=== PATIENT | female | born 1955 | race Caucasian/White ===

== ENCOUNTER → 2024-03-28 | Outpatient (CLI) | payer MEDICARE, BC, SELFPAY ==
--- NOTE | 2024-03-28 14:18 | CT_ITS ---
CT LEFT LOWER EXTREMITY WITH 3-D IMAGING CLINICAL INDICATION: LT KNEE PAIN * CAMELIA* TECHNIQUE: Axial CT images of the left lower extremity (including left hip, left knee, and left ankle) was performed without IV contrast material. Coronal and sagittal reformats were provided. The protocol utilizes one or more of the following dose reduction techniques: automated exposure control, adjustment of mA and/or kV according to patient size, and/or use of iterative reconstruction technique. RADIATION DOSAGE (If Supplied By Facility): CTDIvol = ( 18.91 ) mGy, DLP = ( 1170.90 ) mGycm COMPARISON: No relevant prior comparison study available. FINDINGS: Bones: Normal left hip joint. There is mild tricompartment degenerative arthrosis of the left knee, with mild marginal osteophyte formation. Normal left ankle. Osseous structures are intact without evidence of fracture or dislocation. No lytic or blastic osseous masses. Soft Tissues: There is a tiny left knee joint effusion. The deep soft tissue structures are unremarkable. The superficial soft tissues are unremarkable without evidence of edema, hematoma, or foreign body. CT/Extremity Lower without Contra IMPRESSION: Mild tricompartment degenerative arthrosis of the left knee. Tiny left knee joint effusion. Electronically Signed: Sundar Fregoso MD at 15:12 EST Reading Location ID and State: [facility] / [place] , Service support ,
== END | disposition home or self-care (01) ==
LOC: CT 14:14
PROVIDERS: PCP Family Medicine; Referring Provider Student in an Organized Health Care Education/Training Program; Visit Provider Student in an Organized Health Care Education/Training Program
DX: M25.562 Pain in left knee (principal)
CPT/HCPCS: 73700

== ENCOUNTER 2024-04-21 13:27 | Observation (INO) | payer MEDICARE, BC, SELFPAY ==
--- NOTE | 2024-03-23 14:17 | PAT.ANESEVAL ---
Pre-Assessment Diagnosis/Proposed Procedure Planned Operative Procedure(s): (LEFT) Total Knee Replacement Robotic Arm Chel Anesthesia History Anesthesia History - operations research scientist: Anesthesia History - operations research scientist Hx Hospitalization Yes: HEART VALVE REPLACEMENT 03/23/24 11:20 - 05/18/23 Any Problems With Anesthesia No 03/23/24 11:20 Cholinesterase deficiency No 03/23/24 11:20 You/Your Family Experience No 03/23/24 11:20 fever (hyperthermia) with Relationship Recent Exposure to Contagious No 01/14/17 08:16 Disease Does patient have nerve No 03/23/24 11:20 stimulator Patient instructed to have device shut off --Does patient have Pacemaker or ICD? When Was Last Pacemaker Check QUESTION #4 FULL TEXT: You/Your Family Experience fever (hyperthermia) with Anesthesia Last Oral Intake Last Oral intake: Last Oral Intake NPO since Meds taken in AM with sips of water? Meds patient instructed to take am of surgery PONV PONV - operations research scientist: PONV - operations research scientist Female Yes 03/23/24 11:20 HX of Motion Sickness No 03/23/24 11:20 HX of N/V After Surgery Yes 03/23/24 11:20 Non-Smoker Yes 03/23/24 11:20 Duration of Surgery greater Yes 03/23/24 11:20 than 60 minutes Number of Risk Factors 4 03/23/24 11:20 PONV Score Severe Risk 03/23/24 11:20 Respiratory Assessment Respiratory Assessment - operations research scientist: Respiratory Tract Infection Hx - operations research scientist Hx Respiratory Tract Infection Yes: FLU 03/0803/23/24 11:20 STOP Sleep Apnea STOP Sleep Apnea - operations research scientist: STOP Sleep Apnea - operations research scientist Hx Hypertension No 03/23/24 11:20 Hx Sleep Apnea No 03/23/24 11:20 CPAP No 01/14/17 08:56 BIPAP Do you snore loudly (louder No 03/23/24 11:20 than talking or can be heard Do you often feel tired/ No 03/23/24 11:20 fatigued/ sleepy during daytime? Has anyone observed you stop No 03/23/24 11:20 breathing during sleep? STOP Results Negative 03/23/24 11:20 QUESTION #5 FULL TEXT : Do you snore loudly (louder than talking or can be heard through closed doors)? 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 Specify any problems Hx of Preganancy in last 3 N/A 03/23/24 11:20 Months Nurse Filling Out Transfusion NBUCHER 03/23/24 11:20 & Questions: Date: 03/23/24 03/23/24 11:20 Time: 11:22 03/23/24 11:20 Patient unable to answer at this time (ie. confused, unrespo /Reproduction History /Reproductive History - operations research scientist: /Reproductive Hx- operations research scientist Hx Now No 03/23/24 11:20 Gestational Age (in weeks): EDC: Hx Hx Para Hx Section SAB No 03/23/24 11:20 [facility] Medical History (Updated 03/23/24 @ 11:35 by Rosalia Thomas) Wears hearing aid Loss of hearing Wears glasses Depression Glaucoma Arthritis High cholesterol GERD (gastroesophageal reflux disease) History of edema Former smoker History of stress test History of echocardiogram Hypertension Cardiology follow-up encounter History of atrial fibrillation Home Medications ?Medication ?Instructions ?Recorded ?Last Taken ?Type bimatoprost 0.03 % drops with 1 drp QHS 01/08/17 Unknown History applicator, eyelash base (Latisse) fluoxetine 20 mg capsule (Prozac) 20 mg PO DAILY 01/08/17 Unknown History multivitamin (Multiple Vitamins 1 ea PO DAILY 01/08/17 Unknown History tablet) potassium citrate 10 mEq (1,080 40 meq PO DAILY 01/08/17 Unknown History mg) tablet,extended release rosuvastatin 10 mg tablet 40 mg PO QHS 01/08/17 Unknown History apixaban 5 mg tablet (Eliquis) 5 mg PO BID 03/23/24 Unknown History bumetanide 1 mg tablet 1 mg PO DAILY 03/23/24 Unknown History clopidogrel 75 mg tablet 75 mg PO DAILY 03/23/24 Unknown History lactobacillus combination no.4 3 3,000 mmu cells PO DAILY 03/23/24 Unknown History billion cell capsule (Probiotic) losartan 25 mg tablet 25 mg PO DAILY 03/23/24 Unknown History metoprolol succinate 25 mg 25 mg PO BID 03/23/24 Unknown History tablet,extended release 24 hr Allergy/AdvReac Type Severity Reaction Status Date / Time Sulfa (Sulfonamide Allergy Rash Verified 03/23/24 11:14 Antibiotics) omeprazole (From Prilosec) AdvReac Intermediate Swelling Verified 03/23/24 11:14 Surgical History (Updated 03/23/24 @ 11:35 by Rosalia Thomas) History of heart valve replacement (05/18/23) History of cataract extraction with lens replacement (~2023) History of heart surgery (05/18/23) History of coronary artery stent placement History of cardiac catheterization Social History Smoking Status: Former smoker Audit: Pertinent Findings Pertinent Findings EKG Perinent findings: 06/19/2023 - rhythm 60 bpm Long QT interval consider hypocalcemia or quinine like drug effect borderline EKG unconfirmed Echo (EF%) pertinent findings: 06/30/2023 EF 55 to 60% no wall motion abnormalities right PA pressure 38 mmHg Consult pertinent findings: Cardiology Martha 01/22/2024 chronic diastolic heart failure euvolemic continue current management to mild coronary artery disease 2023 abdominal aortic stent bioprosthetic aortic valve 2023 had episode of VT tach status post surgery aortic valve 2023 paroxysmal atrial fib ejection fraction 06/30/2019 2455 to 60% Current Visit Impressions Current Visit Impressions: Upon arrival review EKG as it is not present Recommendation Anesthesia Recommendation Anesthesia recommendation: OPTIMIZED for anesthesia
--- NOTE | 2024-03-24 13:24 | EKG12_ITS ---
Test Reason : PRE OP Blood Pressure : */* mmHG Vent. Rate : 65 BPM Atrial Rate : 65 BPM P-R Int : 162 ms QRS Dur : 84 ms QT Int : 442 ms P-R-T Axes : 12 89 75 degrees QTcB Int : 459 ms Normal sinus rhythm Normal ECG Confirmed by Sergio Nye ([id number]), news copy editor KAREN LOJA ([id number]) on 03/25/2024 1:00:42 PM Referred By: Zak Rios Confirmed By: Sergio Nye
[2024-03-24 14:23] LABS: Absolute Lymphocyte Count 1.15 X10^3/uL (0.83-4.51); Absolute Neutrophil Count 3.6 X10^3/uL (2.0-7.7); Basophil# 0.03 X10^3/uL; Basophil% 0.5 % (0-1); Eosinophil# 0.29 X10^3/uL; Eosinophils% 4.9 % (0-5); Hematocrit 38.3 % (37-47); Hemoglobin 12.3 g/dL (12.0-15.0); Lymphocyte # 1.15 X10^3/ul (0.83-4.51); Lymphocyte % 19.6 % (19-41); Mean Corp Hgb Conc 32.1 g/dL (32-36); Mean Corpuscular Hgb 28.7 pg (27.0-32.0); Mean Corpuscular Volume 89.5 fL (81-99); Mean Platelet Vol. 10.1 fl (6.2-12.0); Monocyte# 0.78 X10^3/uL; Monocyte% 13.3 % (0-10); NRBC Flagged by Analyzer 0 % (0-5); Neutrophil % 61.4 % (47-70); Platelet Count 265 K/mm3 (150-450); RBC Distribution Width CV 13.2 % (11.6-14.6); RBC Distribution Width SD 43.3 fl (35.1-43.9); Red Blood Count 4.28 M/mm3 (4.2-5.4); White Blood Count 5.9 K/mm3 (4.4-11.0)
[2024-03-24 14:35] LABS: Albumin, Serum 3.4 g/dL (3.2-5.0); Anion Gap 7 (5-15); BUN 17 mg/dL (7-18); BUN/Creat Ratio 22.9 RATIO (10-20); Calcium,Total 8.9 mg/dL (8.5-10.1); Chloride 102 mmol/L (98-107); Creatinine, Serum 0.74 mg/dL (0.55-1.02); EST Glomerular Filtration Rate 82 mL/min (>60); Est Glom Filt Rate - Afr Amer 100 mL/min (>60); Glucose 92 mg/dL (74-106); Potassium 3.4 mmol/L (3.5-5.1); Sodium Level 138 mmol/L (136-145)
[2024-03-24 19:56] LABS: Magnesium 1.9 mg/dL (1.6-2.6)
[2024-04-21] VITALS (14 sets, daily range): BP systolic 123–154; BP diastolic 53–80; PULSE 56–97; RESP 14–22; TEMP 36.2–36.6; O2SAT 95–100; BMI 39.4
[2024-04-21] MEDS: Magnesium 2 GM for ERAS IV (09:22)
[2024-04-21] MEDS: 0.9% Normal Saline (1000mL) 1,000 ML 15 ML IV (09:22)
[2024-04-21] MEDS: Acetaminophen 500 MG Tablet 1000 MG PO ×3 (09:22→21:27)
[2024-04-21] MEDS: Gabapentin 600 MG Tablet PO (09:23)
[2024-04-21 09:50] LABS: Bedside Glucose 97 mg/dL (74-106)
--- NOTE | 2024-04-21 10:03 | PCM.PRE.AN2 ---
ASA Classification* ASA Classification ASA Classification: 3 Assessment & Plan Anesthesia* Anesthesia Assessment Anesthesia Assessment: Discussed sedation and/or anesthesia options, risks, benefits, and alternatives with patient/parents/legal guardian/POA. Questions invited. The patient/parents/legal guardian/POA seems to understand and agrees to proceed with anesthesia plan. Reviewed the physical assessment, medical history, allergy history and patient home medications list prior to surgery/procedure/anesthetic and documented any changes. Performed airway and anesthesia risk assessments. Anesthesia Type Anesthesia Type: General History Source History Obtained from:: Patient and Chart Anesthesia Focused Assessment* Temperature: 98 F Pulse Rate: 61 Blood Pressure: 123/80 Respiratory Rate: 16 Pulse Ox: 98 Oxygen Delivery Method: Room Air Airway Assessment Mouth opens: >3 cm Mallampati Score: I Teeth Condition: Caps/Crowns (Patient has several crowns. They are all tight.) and Missing (Patient has a couple of missing molars on the left side.) Neck Range of motion (ROM): Full ROM Focused Labs Anesthesia Preop lab: CBC WBC 5.9 K/mm3 (4.4-11.0) 03/24/24 13:49 03/24/24 RBC 4.28 M/mm3 (4.2-5.4) 03/24/24 13:49 03/24/24 Hgb 12.3 g/dL (12.0-15.0) 03/24/24 13:49 03/24/24 Hct 38.3 % (37-47) 03/24/24 13:49 03/24/24 Plt Count 265 K/mm3 (150-450) 03/24/24 13:49 03/24/24 CHEMISTRY Potassium 3.4 mmol/L (3.5-5.1) L 03/24/24 13:49 03/24/24 Sodium 138 mmol/L (136-145) 03/24/24 13:49 03/24/24 Magnesium 1.9 mg/dL (1.6-2.6) 03/24/24 13:49 03/24/24 BUN 17 mg/dL (7-18) 03/24/24 13:49 03/24/24 Creatinine 0.74 mg/dL (0.55-1.02) 03/24/24 13:49 03/24/24 Glucose 92 mg/dL (74-106) 03/24/24 13:49 03/24/24 POC Glucose 97 mg/dL (74-106) 04/21/24 09:33 04/21/24 COAG Pre-Assessment Diagnosis/Proposed Procedure Planned Operative Procedure(s): (LEFT) Total Knee Replacement Robotic Arm Assist Anesthesia History Anesthesia History - health manager: Anesthesia History - health manager Hx Hospitalization Yes: HEART VALVE REPLACEMENT 03/23/24 11:20 - 05/18/23 Any Problems With Anesthesia No 03/23/24 11:20 Cholinesterase deficiency No 03/23/24 11:20 You/Your Family Experience No 03/23/24 11:20 fever (hyperthermia) with Relationship Recent Exposure to Contagious No 04/21/24 09:34 Disease Does patient have nerve No 03/23/24 11:20 stimulator Patient instructed to have device shut off --Does patient have Pacemaker No 04/21/24 09:34 or ICD? When Was Last Pacemaker Check QUESTION #4 FULL TEXT: You/Your Family Experience fever (hyperthermia) with Anesthesia Last Oral Intake Last Oral intake: Last Oral Intake NPO since 07:15 04/21/24 09:34 Meds taken in AM with sips of Yes 04/21/24 09:34 water? Meds patient instructed to take am of surgery Any additional information?: Yes NPO since: 07:15 (Patient finished preop Ensure at 7:15 AM.) PONV PONV - health manager: PONV - health manager Female Yes 03/23/24 11:20 HX of Motion Sickness No 03/23/24 11:20 HX of N/V After Surgery Yes 03/23/24 11:20 Non-Smoker Yes 03/23/24 11:20 Duration of Surgery greater Yes 03/23/24 11:20 than 60 minutes Number of Risk Factors 4 03/23/24 11:20 PONV Score Severe Risk 03/23/24 11:20 Height & Weight Height & Weight: Anesthesia: Height & Weight Height 5 ft 3 in 04/21/24 09:34 Weight: 101 kg 04/21/24 09:34 Body Mass Index (BMI) 39.4 04/21/24 09:34 Respiratory Assessment Respiratory Assessment - health manager: Respiratory Tract Infection Hx - health manager Hx Respiratory Tract Infection Yes: FLU 12/24 01/08/25 11:20 STOP Sleep Apnea STOP Sleep Apnea - health manager: STOP Sleep Apnea - health manager Hx Hypertension No 03/23/24 11:20 Hx Sleep Apnea No 03/23/24 11:20 CPAP No 01/14/17 08:56 BIPAP Do you snore loudly (louder No 03/23/24 11:20 than talking or can be heard Do you often feel tired/ No 03/23/24 11:20 fatigued/ sleepy during daytime? Has anyone observed you stop No 03/23/24 11:20 breathing during sleep? STOP Results Negative 03/23/24 11:20 QUESTION #5 FULL TEXT : Do you snore loudly (louder than talking or can be heard through closed doors)? 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 Specify any problems Hx of Preganancy in last 3 N/A 03/23/24 11:20 Months Nurse Filling Out Transfusion [facility]BU[facility] 03/23/24 11:20 & Questions: Date: 03/23/24 03/23/24 11:20 Time: 11:22 03/23/24 11:20 Patient unable to answer at this time (ie. confused, unrespo /Reproduction History /Reproductive History - health manager: /Reproductive Hx- health manager Hx Now No 03/23/24 11:20 Gestational Age (in weeks): EDC: Hx Hx Para Hx Section SAB No 03/23/24 11:20 Active Medications Active Medications: Current Medications Generic Name Dose Route Start Last Admin Trade Name Freq PRN Reason Stop Dose Admin Acetaminophen 1,000 mg 04/21/24 11:00 04/21/24 09:22 Acetaminophen 500 Mg Tablet PO 04/21/24 11:01 1,000 mg X1 ONE Administration Sodium Chloride 77.4 ml/ 0 ml 04/21/24 11:00 Ropivacaine 200 mg/ OPERA.SITE 04/21/24 11:01 Epinephrine HCl 0.6 mg/ X1 ONE Ketorolac Tromethamine 30 mg/ Morphine Sulfate 5 mg Dexamethasone Sodium Phosphate 10 mg 04/21/24 11:00 Dexamethasone 10 Mg/Ml Vial IV 04/21/24 11:01 X1 ONE Gabapentin 600 mg 04/21/24 11:00 04/21/24 09:23 Gabapentin 600 Mg Tablet PO 04/21/24 11:01 600 mg X1 ONE Administration Lactated Ringer's 1,000 mls @ 999 mls/hr 04/21/24 11:00 04/21/24 09:38 IV 04/21/24 12:00 Not Given .Q1H1M EVANS Cefazolin Sodium 2 gm/ N/A 20 mls @ 400 mls/hr 04/21/24 11:00 IV 04/21/24 11:02 PREOP ONE Tranexamic Acid 1,000 mg/ 110 mls @ 660 mls/hr 04/21/24 11:00 Sodium Chloride IV 04/21/24 11:09 X1 ONE Tranexamic Acid 1,000 mg/ 110 mls @ 660 mls/hr 04/21/24 12:00 Sodium Chloride IV 04/21/24 12:09 X1 ONE Lactated Ringer's 1,000 mls @ 999 mls/hr 04/21/24 12:00 IV 04/21/24 13:00 .Q1H1M EVANS Lactated Ringer's 1,000 mls @ 125 mls/hr 04/21/24 13:00 IV 04/21/24 20:59 .Q8H EVANS Magnesium Sulfate 2 gm/ 104 mls @ 208 mls/hr 04/21/24 11:00 04/21/24 09:22 Dextrose IV 04/21/24 11:29 208 mls/hr X1 ONE Administration Sodium Chloride 1,000 mls @ 15 mls/hr 04/21/24 09:00 04/21/24 09:22 IV 04/26/24 22:19 15 mls/hr .Q48H EVANS Administration Protocol Insulin Human Lispro 1 - 6 unit 04/21/24 11:00 Insulin Lispro 100 Unit/Ml Insuln.Pen SC 04/21/24 17:00 Q4H PRN PRN BG>/= 180, SEE PROTOCOL Protocol PFSH Medical History Wears hearing aid Loss of hearing Wears glasses Depression Glaucoma Arthritis High cholesterol GERD (gastroesophageal reflux disease) History of edema Former smoker History of stress test History of echocardiogram Hypertension Cardiology follow-up encounter History of atrial fibrillation Home Medications ?Medication ?Instructions ?Recorded ?Last Taken ?Type bimatoprost 0.03 % drops with 1 drp QHS 01/08/17 04/20/24 History applicator, eyelash base (Latisse) fluoxetine 20 mg capsule (Prozac) 20 mg PO DAILY 01/08/17 04/21/24 History multivitamin (Multiple Vitamins 1 ea PO DAILY 01/08/17 04/20/24 History tablet) Held on 04/21/24. Instructions: MD Ordered potassium citrate 10 mEq (1,080 40 meq PO DAILY 01/08/17 04/20/24 History mg) tablet,extended release Held on 04/21/24. Instructions: MD Ordered rosuvastatin 10 mg tablet 40 mg PO DAILY 01/08/17 04/20/24 History apixaban 5 mg tablet (Eliquis) 5 mg PO BID 03/23/24 04/19/24 History bumetanide 1 mg tablet 1 mg PO DAILY 03/23/24 04/20/24 History clopidogrel 75 mg tablet 75 mg PO DAILY 03/23/24 04/16/24 History lactobacillus combination no.4 3 3,000 mmu cells PO DAILY 03/23/24 04/20/24 History billion cell capsule (Probiotic) losartan 25 mg tablet 25 mg PO DAILY 03/23/24 04/21/24 History metoprolol succinate 25 mg 25 mg PO BID 03/23/24 04/21/24 History tablet,extended release 24 hr aspirin 81 mg tablet,delayed 81 mg PO DAILY 04/21/24 04/21/24 History release (Adult Aspirin Regimen) Allergy/AdvReac Type Severity Reaction Status Date / Time Sulfa (Sulfonamide Allergy Rash Verified 04/21/24 09:19 Antibiotics) omeprazole (From Prilosec) AdvReac Intermediate Swelling Verified 04/21/24 09:19 Surgical History History of heart valve replacement (05/18/23) History of cataract extraction with lens replacement (~2023) History of heart surgery (05/18/23) History of coronary artery stent placement History of cardiac catheterization Social History Smoking Status: Former smoker Review of Systems (Anesthesia) ROS Narrative System reviewed and no additional complaints, except as documented.
--- NOTE | 2024-04-21 11:00 | KNEE_PTH ---
PATIENT: VARINDER PEREZ LOC: MS3 U#:[id number] AGE/SX: 68/F [place] [facility] [place]: Dr. Zak Rios DO : 1955 BED: 1 DIS: 04/22/2024 SPEC #: [id number] RECD: 04/21/24 13:34 STATUS: ZEN REBrea #: [id number] NYA: 04/21/24 11:[address]: Zak Rios DEPT: SURGICAL PATHOLOGY RECD BY: Abel Jasso ENTERED: 04/21/24 13:49 SP TYPE: TOTAL KNEE OTHR DR: Dr. Iva Fleming DO Tissues: Knee, NOS Procedures: Decalcification bone/plaque Surgery Specimen Level IV HEADER OPERATION: Total knee replacement robotic arm assist PRE-OP DIAGNOSIS: Unilateral posttraumatic arthritis of left knee TISSUE SUBMITTED: Left knee bone and tissue MICROSCOPIC DIAGNOSIS Bone and soft tissue, left knee, total knee replacement/resection: Pieces of bone with degenerative osteoarthritic changes. : 04/27/2024 MICROSCOPIC DESCRIPTION Slides are reviewed. GROSS DESCRIPTION Received is one container designated bone and soft tissue left knee. The specimen consists of multiple fragments of may-yellow bone measuring in aggregate 9 x 9 x 3.5 cm. No soft tissue is identified. A number of bony fragments contain articular surfaces consistent with tibial plateau and femoral condyle and displaying prominent osteophyte formation, eburnation and bone erosion. Aviation Neuropsychologist sections are submitted in one cassette after decalcification. / KAYCEE. 04/21/2024 TC:5 CPT: 27270, [id number]
[2024-04-21] MEDS: dexAMETHasone 10 MG/ML Vial IV (11:05)
[2024-04-21] MEDS: TXA 1000mg in NS100 100ml (IVPB at Incision) 660 MG IV (11:13)
[2024-04-21] MEDS: Cefazolin 2 GM in Syringe 10 ML IV (11:15)
[2024-04-21] MEDS: JPS (Morphine 10mg/ml) OPERA.SITE (12:30)
[2024-04-21] MEDS: TXA 1000mg in NS100 100ml (IVPB at Closure) 660 MG IV (12:35)
--- NOTE | 2024-04-21 13:15 | PCM.POST.ANE ---
Anesthesia: Postop Eval I Current Vital Signs Temperature: 97.2 F Pulse Rate: 96 Blood Pressure: 154/69 Respiratory Rate: 22 Pulse Ox: 96 Assessment Airway patent: Yes Spontaneous unlabored respirations: Yes nausea: No Vomiting: No Anesthesia Complication: No Fluid Hydration Crystalloid volume administer (ml): 1,000 Total IV fluid infused: 1,000 Progress Note Anesthesia document: Postop Eval 1 completed: Yes
[2024-04-21] MEDS: Lactated Ringers 1,000 ML 999 ML IV (13:46)
--- NOTE | 2024-04-21 14:33 | OP.PCM_ITS ---
Operative Report (Standard) Operative Information Date of Procedure: 04/21/24 Pre-Operative Diagnosis: Left knee osteoarthritis Post-Operative Diagnosis: Left knee osteoarthritis Surgery/Procedure Performed: Robotic arm assisted left total knee arthroplasty journeyman mechanic: Yes Closing Agent: Azalea Mae Tasks completed by first officer: Opening & closing, Dissecting tissue, Implanting device and Retracting Additional child and youth program assistant?: Yes Additional Auto Service Station Attendant #2: Valeria Chisholm Tasks completed by child and youth program assistant #2: Hemostasis: Electrocautery and Retracting Additional child and youth program assistant?: No Type of Anesthesia: General RN Documented Start/Stop Times: Operation Date: 04/21/24 11:00 Case Time Into Pre-Op 04/21/24 08:57 Out of Pre-Op 04/21/24 10:48 Anesthesia Start 04/21/24 11:01 Into Room 04/21/24 11:01 Procedure Start 04/21/24 11:34 Procedure End 04/21/24 13:02 Anesthesia End 04/21/24 13:12 Out of Room 04/21/24 13:12 Into Recovery 04/21/24 13:15 Out of Recovery 04/21/24 13:59 Into Phase II Recovery 04/21/24 14:00 Procedure Start Time: 11:34 Procedure Stop Time: 13:02 Select all DRAINS/GRAFTS/IMPLANTS that apply: Implanted device Implanted device details: Surgical implants: Javed triathlon X3 asymmetric patella size a 4011 mm thickness, triathlon cruciate retaining femoral #7, primary tibial baseplate #7, triathlon X3 tibial bearing insert CS Indications: This is a 68-year-old male seen in the outpatient setting diagnosed with left knee osteoarthritis with significant valgus deformity. She failed nonoperative management with intra-articular corticosteroid injections, activity modification, bracing, [id number] analgesics. X-rays revealed grade 4 medial compartment changes. I recommended a left total knee arthroplasty. The risk, benefits, alternatives to procedure reviewed with patient at length and he agreed to proceed. Risks included but were not limited to bleeding, infection, loss of life or limb, need for additional surgery, persistent pain, intraoperative or postoperative fracture, instability, loosening of components, wound complications, stiffness, neurovascular injury, DVT or PE. Patient expressed understanding these risks and wished to proceed with surgery. Informed consent was obtained in the outpatient setting. Description of procedure: Patient was identified in the preoperative holding area by name, medical record number, and date of . Informed consent set was confirmed with the patient. The operative knee was marked with a surgical marker. At time of her procedure, patient brought to the operative suite and positioned supine a standard operating table. General anesthesia was induced and endotracheal tube placed. She was then repositioned in the supine position with all bony prominences well-padded. We then placed a well-padded pneumatic tourniquet on the left upper thigh. The left upper extremity was brought across patient's chest throughout the procedure. We then prepped and draped the left lower extremity in a normal, sterile orthopedic fashion. We performed a timeout with all parties in attendance in agreement with the side, site, operation be performed. No concerns were voiced and would like to proceed with surgery. 2 g Ancef was administered prior to the incision by anesthesia staff as well as 1 g IV TXA. First exsanguinated the left lower extremity with a Esmarch bandage. Tourniquet was inflated to 280 mmHg which remained inflated for 1 hour. Esmarch was removed. I planned a standard midline approach to the left knee approximately 15 cm in length. Skin was sharply incised with a 10 blade scalpel developing full-thickness layers down to the retinaculum. Layers were developed identifying the VMO. I then planned a standard medial parapatellar arthrotomy performed in flexion. The anterior horn of the medial meniscus was released. Hoffa's fat pad was then released. I then everted the patella in extension and brought the knee into 90 degrees of flexion. The anterior horn of the lateral meniscus was then released. The ACL was split in its mid substance with a 10 blade. We then brought the knee back into extension. The patella was examined. Grade I-II chondromalacia was noted diffusely. Elected to leave the patella [place]. I then placed pins in the metaphyseal distal femur medial to lateral for the Gerber arrays. In similar fashion, I made a 2 cm incision approximately a handsbreadth distal to the tibial tubercle along the medial aspect of the tibia, drilling 2 bicortical pins for the tibial array. The knee was brought into flexion. The patella was subluxed laterally but not everted. Medial lateral retractors were placed. We then utilized the Payfirma software to confirm our planned surgical procedure and oriented with the patient's osseous anatomy. All checks with the Gerber system were confirmed. Patient had a significant fixed varus deformity after performing stress examination utilizing the Gerber software. We elected to place the femoral component in approximately 2 degrees of varus to allow for appropriate balancing. Sawblade was then brought in. I first started with the tibial cut, ensuring protection of the MCL and patellar tendon. A tibial wafer was then excised. I then proceeded to make the posterior femoral, anterior, anterior chamfer cuts with the same blade. Ligaments were protected with Intermedics retractors. Sawblade was then exchanged to perform the distal femoral and posterior chamfer cuts. The robot was then removed from the surgical field. Remaining loose bone and meniscus was excised carefully. Posterior osteophytes were removed from the distal femur with a curved osteotome and rongeur. Trial components were then placed. Balance was excellent in both extension and 90 degrees flexion. No mid flexion instability was apparent. Patella was trialed. Tracking was excellent. We then marked for tibial baseplate. Distal femoral pegs were drilled. Tibial keel was punched. Trials were removed. Periarticular block was administered. The wound was copiously irrigated with normal saline solution. Simplex cement was then mixed on the back table. Components were then cemented in place with excess cement being removed. Cement was allowed to cure with the components in full extension utilizing a 9 mm trial polyethylene component. While the cement was curing, Betadine solution was irrigated into the wound and the wound edges. After cement had cured fully, trial polyethylene was removed. Tourniquet was deflated. Hemostasis was excellent. An additional 1 g TXA was administered IV. I selected a size 9 mm polyethylene which was placed and impacted per spray machine tender recommendations. Final components appeared very well balanced with excellent range of motion. The wound was copiously irrigated with normal saline solution. Capsule was closed watertight with #1 strata fix barbed suture. Deeper bursal layer was reapproximated with 0 Vicryl suture. Dermis was reapproximated buried interrupted 2-0 Vicryl suture. Skin was finally reapproximated diego. Patient tolerated the procedure well without apparent complication. She was extubated and safely awakened in the operative suite, transferred to her hospital bed and subsequently to PACU in stable condition. Need for skilled child and youth program assistant: Azalea Mae PA-C was critical to the outcome of the case. During the course of the procedure the physician child and youth program assistant played a vital role. Her intimate knowledge of my steps in the procedure aided in safe and expedient completion of the procedure. The PA played a vital role in positioning particularly in obtaining the appropriate positioning. The PA was also vital in the retraction of soft tissues during the exposure and projecting vital structures. The PA was also vital and protecting soft tissues during times of bony cuts. She also played a vital role in closure with my direct supervision. The PA was also important during reduction and dislocation of the joint and trials intraoperatively. Post Operative Plan: Patient will be placed in observation overnight due to her multiple comorbidities. Weightbearing: Range of motion and weightbearing as tolerated left lower extremity. Antibiotics: Ancef 2 g every 8 hours x 3 doses. 1 week prophylactic Keflex due to BMI risk factor DVT Prophylaxis: Restart home Eliquis, aspirin and Plavix postoperative day #1 Newsome: None Dressing: Maintain silver dressing x7 days X-Rays: 2-week x-rays in the office. Follow-up: 2 weeks in my office for staple removal Estimated Blood Loss: 30 cc Specimen collected: Yes Description of specimen(s) removed: Bony resections left knee Description of surgery: Surgical implants: Javed triathlon X3 asymmetric patella size a 4011 mm thickness, triathlon cruciate retaining femoral #7, primary tibial baseplate #7, triathlon X3 tibial bearing insert CS Indications: This is a 68-year-old male seen in the outpatient setting diagnosed with left knee osteoarthritis with significant valgus deformity. She failed nonoperative management with intra-articular corticosteroid injections, activity modification, bracing, qguk-mfj-[id number] analgesics. X-rays revealed grade 4 medial compartment changes. I recommended a left total knee arthroplasty. The risk, benefits, alternatives to procedure reviewed with patient at length and he agreed to proceed. Risks included but were not limited to bleeding, infection, loss of life or limb, need for additional surgery, persistent pain, intraoperative or postoperative fracture, instability, loosening of components, wound complications, stiffness, neurovascular injury, DVT or PE. Patient expressed understanding these risks and wished to proceed with surgery. Info rmed consent was obtained in the outpatient setting. Description of procedure: Patient was identified in the preoperative holding area by name, medical record number, and date of . Informed consent set was confirmed with the patient. The operative knee was marked with a surgical marker. At time of her procedure, patient brought to the operative suite and positioned supine a standard operating table. General anesthesia was induced and endotracheal tube placed. She was then repositioned in the supine position with all bony prominences well-padded. We then placed a well-padded pneumatic tourniquet on the left upper thigh. The left upper extremity was brought across patient's chest throughout the procedure. We then prepped and draped the left lower extremity in a normal, sterile orthopedic fashion. We performed a timeout with all parties in attendance in agreement with the side, site, operation be performed. No concerns were voiced and would like to proceed with surgery. 2 g Ancef was administered prior to the incision by anesthesia staff as well as 1 g IV TXA. First exsanguinated the left lower extremity with a Esmarch bandage. Tourniquet was inflated to 280 mmHg which remained inflated for 1 hour. Esmarch was removed. I planned a standard midline approach to the left knee approximately 15 cm in length. Skin was sharply incised with a 10 blade scalpel developing full-thickness layers down to the retinaculum. Layers were developed identifying the VMO. I then planned a standard medial parapatellar arthrotomy performed in flexion. The anterior horn of the medial meniscus was released. Hoffa's fat pad was then released. I then everted the patella in extension and brought the knee into 90 degrees of flexion. The anterior horn of the lateral meniscus was then released. The ACL was split in its mid substance with a 10 blade. We then brought the knee back into extension. The patella was examined. Grade I-II chondromalacia was noted diffusely. Elected to leave the patella [place]. I then placed pins in the metaphyseal distal femur medial to lateral for the Gerber arrays. In similar fashion, I made a 2 cm incision approximately a handsbreadth distal to the tibial tubercle along the medial aspect of the tibia, drilling 2 bicortical pins for the tibial array. The knee was brought into flexion. The patella was subluxed laterally but not everted. Medial lateral retractors were placed. We then utilized the Payfirma software to confirm our planned surgical procedure and oriented with the patient's osseous anatomy. All checks with the Payfirma system were confirmed. Patient had a significant fixed varus deformity after performing stress examination utilizing the Payfirma software. We elected to place the femoral component in approximately 2 degrees of varus to allow for appropriate balancing. Sawblade was then brought in. I first started with the tibial cut, ensuring protection of the MCL and patellar tendon. A tibial wafer was then e xcised. I then proceeded to make the posterior femoral, anterior, anterior chamfer cuts with the same blade. Ligaments were protected with Intermedics retractors. Sawblade was then exchanged to perform the distal femoral and posterior chamfer cuts. The robot was then removed from the surgical field. Remaining loose bone and meniscus was excised carefully. Posterior osteophytes were removed from the distal femur with a curved osteotome and rongeur. Trial components were then placed. Balance was excellent in both extension and 90 degrees flexion. No mid flexion instability was apparent. Patella was trialed. Tracking was excellent. We then marked for tibial baseplate. Distal femoral pegs were drilled. Tibial keel was punched. Trials were removed. Periarticular block was administered. The wound was copiously irrigated with normal saline solution. Simplex cement was then mixed on the back table. Components were then cemented in place with excess cement being removed. Cement was allowed to cure with the components in full extension utilizing a 9 mm trial polyethylene component. While the cement was curing, Betadine solution was irrigated into the wound and the wound edges. After cement had cured fully, trial polyethylene was removed. Tourniquet was deflated. Hemostasis was excellent. An additional 1 g TXA was administered IV. I selected a size 9 mm polyethylene which was placed and impacted per spray machine tender recommendations. Final components appeared very well balanced with excellent range of motion. The wound was copiously irrigated with normal saline solution. Capsule was closed watertight with #1 strata fix barbed suture. Deeper bursal layer was reapproximated with 0 Vicryl suture. Dermis was reapproximated buried interrupted 2-0 Vicryl suture. Skin was finally reapproximated diego. Patient tolerated the procedure well without apparent complication. She was extubated and safely awakened in the operative suite, transferred to her hosp ital bed and subsequently to PACU in stable condition. Need for skilled child and youth program assistant: Azalea Mae PA-C was critical to the outcome of the case. During the course of the procedure the physician child and youth program assistant played a vital role. Her intimate knowledge of my steps in the procedure aided in safe and expedient completion of the procedure. The PA played a vital role in positioning particularly in obtaining the appropriate positioning. The PA was also vital in the retraction of soft tissues during the exposure and projecting vital structures. The PA was also vital and protecting soft tissues during t imes of bony cuts. She also played a vital role in closure with my direct supervision. The PA was also important during reduction and dislocation of the joint and trials intraoperatively. Post Operative Plan: Patient will be placed in observation overnight due to her multiple comorbidities. Weightbearing: Range of motion and weightbearing as tolerated left lower extremity. Antibiotics: Ancef 2 g every 8 hours x 3 doses. 1 week prophylactic Keflex due to BMI risk factor DVT Prophylaxis: Restart home Eliquis, aspirin and Plavix postoperative day #1 Newsome: None Dressing: Maintain silver dressing x7 days X-Rays: 2-week x-rays in the office. Follow-up: 2 weeks in my office for staple removal Surgical Findings: Severe left knee osteoarthritis. Good patellofemoral tracking following final implantation. Complications Complications: No Admit VTE Documentation VTE Present on Admission: No VTE Mechan Device Prophylaxis: SCD's and Thigh High PRITESH Hose VTE Pharm Prophylaxis ordered?: Yes
[2024-04-21] MEDS: Lactated Ringers 1,000 ML 125 ML IV (14:46)
--- NOTE | 2024-04-21 15:51 | POSTOPAN2_ITS ---
Anesthesia Postop Eval I Sum Postop Eval Completion status Anesthesia document: Postop Eval 1 completed: Yes Anesthesia Postop Eval I Summary Anesthesia Postop Eval I Summary: Anesthesia Postop Eval I: Assessment Summary Airway patent Yes 04/21/24 13:15 OFFICE MACHINES SALES REPRESENTATIVE.[email or web address] Spontaneous unlabored Yes 04/21/24 13:15 OFFICE MACHINES SALES REPRESENTATIVE.CSIR respirations Mental status nausea No 04/21/24 13:15 OFFICE MACHINES SALES REPRESENTATIVE.CSIR Vomiting No 04/21/24 13:15 OFFICE MACHINES SALES REPRESENTATIVE.CSIR Anesthesia Postop Eval I: Fluid Summary Crystalloid volume administer 1,000 04/21/24 13:15 OFFICE MACHINES SALES REPRESENTATIVE.CSIR (ml) Colloids volume administered ( ml) Blood Product volume administered (ml) Total IV fluid infused 1,000 04/21/24 13:15 OFFICE MACHINES SALES REPRESENTATIVE.CSIR Anesthesia Postop Eval I: Summary Notes Anesthesia Complication No 04/21/24 13:15 OFFICE MACHINES SALES REPRESENTATIVE.CSIR Anesthesia Complication Comment: Post-operative progress note Anesthesia: Postop Eval II Evaluation Mental status: Awake and Calm Pain Level: 1 nausea: No Vomiting: No Complications Anesthesia Complication: No
--- NOTE | 2024-04-21 15:51 | PCM.POSTANE2 ---
Anesthesia Postop Eval I Sum Postop Eval Completion status Anesthesia document: Postop Eval 1 completed: Yes Anesthesia Postop Eval I Summary Anesthesia Postop Eval I Summary: Anesthesia Postop Eval I: Assessment Summary Airway patent Yes 04/21/24 13:15 [email or web address] Spontaneous unlabored Yes 04/21/24 13:15 [email or web address] respirations Mental status nausea No 04/21/24 13:15 [email or web address] Vomiting No 04/21/24 13:15 WIG [email or web address] Anesthesia Postop Eval I: Fluid Summary Crystalloid volume administer 1,000 04/21/24 13:15 WIG [email or web address] (ml) Colloids volume administered ( ml) Blood Product volume administered (ml) Total IV fluid infused 1,000 04/21/24 13:15 WIG [email or web address] Anesthesia Postop Eval I: Summary Notes Anesthesia Complication No 04/21/24 13:15 WIG [email or web address].CSIR Anesthesia Complication Comment: Post-operative progress note Anesthesia: Postop Eval II Evaluation Mental status: Awake and Calm Pain Level: 1 nausea: No Vomiting: No Complications Anesthesia Complication: No
[2024-04-21] MEDS: Cefazolin 1 GM/50 ML BAG IV (18:31)
--- NOTE | 2024-04-21 20:22 | PCM.PN.HOSP ---
Reason for Visit Reason for Visit: Diagnoses Encounter for other preprocedural examination (04/21/24) Subjective Subjective 68-year-old female with history of atrial fibrillation, coronary artery disease with history of stent placement 11/2023, AV valve replacement May 2023, hypertension, anxiety presented [facility] 04/21/2024 for a left total knee arthroplasty with Dr. Rios, hospitalist consulted postoperatively for medical management. Patient evaluated at bedside, reports she is overall feeling well with no chest pain or shortness of breath. Discussed her triple therapy with anticoagulants and antiplatelet she reports that she was on Plavix and Eliquis and was only placed on aspirin temporarily while her Plavix was held for surgery and that starting tomorrow she is post to go back on just Plavix and Eliquis with no aspirin. She follows with cardiology. Objective Data Objective Data Vital Signs: Vital Signs Temp Pulse Resp BP Pulse Ox O2 Del Method O2 Flow Rate 97.4 F L 59 L 16 139/53 H 99 Room Air 2 04/21/24 18:36 04/21/24 18:36 04/21/24 18:36 04/21/24 18:36 04/21/24 18:36 04/21/24 18:36 04/21/24 16:55 Oxygen Flow Rate (L/min) 2 Oxygen Delivery Method Room Air Weight: 101 kg Body Mass Index (BMI) 39.4 Intake & Output: Intake and Output for Last 24 Hours 04/19/24 04/20/24 04/21/24 23:59 23:59 23:59 Intake Total 3380.83 / 3380.83 Balance 3380.83 / 3380.83 Lab / Micro Data 03/24/24 13:49 03/24/24 13:49 Labs: Laboratory Results - last 24 hr 04/21/24 09:33: POC Glucose 97 Micro: Microbiology 03/24/24 13:49 Swab (Method) Nasal Screen MRSA/MSSA - Final Physical Exam Narrative General: Alert, oriented, no apparent distress HEENT: Atraumatic, normocephalic Eyes: Anicteric, normal conjunctiva, extraocular movements grossly intact Neck: Supple Respiratory: Clear to auscultation bilaterally, normal respiratory effort Cardiovascular: Regular rate and rhythm GI: Soft, nontender, nondistended Extremities: No edema Musculoskeletal: Moving all extremities Neuro: No overt focal neurological deficits Skin: No rashes appreciated Psych: Cooperative Assessment & Plan Assessment/Plan (1) History of coronary artery stent placement: PLAN: Plan # History of coronary artery disease -With stent placement 11/2023 -Patient endorses she was only placed on aspirin while her Plavix was held for surgery and that her tomato grader wants her resumed on Eliquis and Plavix tomorrow with no further aspirin given she is resuming her regular therapy, aspirin discontinued -Continue follow-up with cardiology on discharge -Continue atorvastatin and metoprolol #Hx afib -Continue metoprolol and Eliquis tor resume tomorrow # History of AV valve replacement -Patient had AV valve replacement May 2023 #Hypertension -Patient to resume losartan and metoprolol #Depression/anxiety -Continue home fluoxetine # Left knee osteoarthritis -Status post left total knee arthroplasty 04/21/[address] Rios -PT/OT -Management per primary #DVT ppx: resuming eliquis Ayla Vickers MD Time spent in the patient's overall evaluation, decision-making process, review of diagnostic data, adjustment of management, discussion with other providers, nursing and ancillary staff involved in patient's care documentation, 22 Minutes Charges/Coding Visit Charges Office Visits / Consults: [id number] OV L3 Est 20min
[2024-04-21] MEDS: Senna/Docusate Sodium 1 Tablet 2 TABLET PO (21:27)
[2024-04-21] MEDS: Metoprolol(XL)Succ 25 MG Tablet PO (21:27)
[2024-04-21] MEDS: Latanoprost 0.005% 1 Bottle 1 DRP OPHTHALMIC (21:30)
[2024-04-22] MEDS: oxyCODONE 5 MG Tablet PO (01:21)
[2024-04-22] MEDS: Cefazolin 1 GM/50 ML BAG IV (02:27)
[2024-04-22 02:40] VITALS: BP 126/54; PULSE 57; RESP 16; TEMP 36.6; O2SAT 95
[2024-04-22] MEDS: Acetaminophen 500 MG Tablet 1000 MG PO ×2 (06:12→13:17)
[2024-04-22 06:25] VITALS: BP 120/55; PULSE 55; RESP 16; TEMP 36.6; O2SAT 97
[2024-04-22 06:40] LABS: Hematocrit 31.4 % (37-47); Hemoglobin 10.1 g/dL (12.0-15.0); Mean Corp Hgb Conc 32.2 g/dL (32-36); Mean Corpuscular Hgb 28.7 pg (27.0-32.0); Mean Corpuscular Volume 89.2 fL (81-99); Mean Platelet Vol. 10.3 fl (6.2-12.0); Platelet Count 191 K/mm3 (150-450); RBC Distribution Width CV 13.5 % (11.6-14.6); Red Blood Count 3.52 M/mm3 (4.2-5.4); White Blood Count 14.2 K/mm3 (4.4-11.0)
[2024-04-22 07:10] LABS: Anion Gap 6 (5-15); BUN 16 mg/dL (7-18); BUN/Creat Ratio 25.8 RATIO (10-20); Calcium,Total 8.2 mg/dL (8.5-10.1); Chloride 107 mmol/L (98-107); Creatinine, Serum 0.62 mg/dL (0.55-1.02); EST Glomerular Filtration Rate 101 mL/min (>60); Est Glom Filt Rate - Afr Amer 122 mL/min (>60); Estimated Creatinine Clearance 74.21 ml/min; Glucose 139 mg/dL (74-106); Potassium 4.6 mmol/L (3.5-5.1); Sodium Level 138 mmol/L (136-145)
[2024-04-22] MEDS: Senna/Docusate Sodium 1 Tablet 2 TABLET PO (07:57)
[2024-04-22] MEDS: APIXABAN 5 MG TABLET PO (07:57)
[2024-04-22] MEDS: Bumetanide 2 MG Tablet 1 MG PO (07:58)
[2024-04-22] MEDS: Clopidogrel Bisulfate 75 MG Tablet PO (07:58)
[2024-04-22] MEDS: Atorvastatin Calcium 80 MG Tablet PO (07:58)
[2024-04-22] MEDS: FLUoxetine 20 MG Capsule PO (07:58)
[2024-04-22] MEDS: Losartan Potassium 25 MG Tablet PO (07:58)
[2024-04-22 07:59] VITALS: BP 120/55; PULSE 55
[2024-04-22] MEDS: Metoprolol(XL)Succ 25 MG Tablet PO (07:59)
--- NOTE | 2024-04-22 11:03 | CASEMGMT ---
GONZÁLEZ PIERRE Assessment Face to Face with patient for initial transition planning/care coordination assessment. GONZÁLEZ PIERRE introduced self and role at [facility], pt voices understanding. Pt is A&Ox4 and is resting comfortably in the chair and is calm. Care providers, pharmacy, and demographics verified. Admitting Dx: Lt TKR LACE Strata: 1 PCP: Iva Fleming Specialists: Blanca (Ortho), Alicia (Cardio), Jesus (Vascular) Preferred Pharmacy: [facility] Insurance: FreshPay A/B, [employer] Prescription Benefit: Yes LNOK: Rissa Mcelroy (H) Living Arrangements: Pt lives with her in a 2 story home with a FFSU and 5 steps to enter with a handrail ADLs/IADLs: Ind Transportation: Self, . Denies concerns DME: FWW, Cane, Shower chair, grab bars HHC/SNF: Hx with [facility] in 2023 after cardiac surgery. Denies SNF Hx or needs. Pt has been to OP therapy through [facility] in the past Pt?s goal: Home Plan: Home with OP Tx. PT is recommending OP Tx, see note. Pt states that she is already established with OP Tx through [facility] and does not need a new Rx for this. Pt states that her first appt is scheduled for Thursday. Pt states that she feels safe with this plan and denies further concerns at this time. Report given to MEHNAZ CLAUDIO CM. Abdulaziz Mcelroy RN, CM
[2024-04-22 11:34] VITALS: BP 120/47; PULSE 55; RESP 16; TEMP 36.3; O2SAT 96
--- NOTE | 2024-04-22 11:48 | CPS ---
SMI and Pep held at this time. Pt on phone.
--- NOTE | 2024-04-22 11:54 | DS.PCM_ITS ---
Providers Date of Admission: 04/21/24 Date of Discharge: 04/22/24 Primary Care Physician: Dr. Iva Fleming, DO Consultations 04/21/24 13:26 Consult: Hospitalist Routine Consulting Provider: Ayla Vickers Reason for Consult: post op total knee medical management EMERGENT Consult: No MD Notified: Yes Date Notified: 04/21/24 Time Notified: 14:51 Method of Notification: Text Reason For Visit: Total Knee Replacement Robotic Arm Chel LEFT Diagnosis Discharge Diagnosis (1) History of coronary artery stent placement: Status: Acute Code(s): Z95.5 - Presence of coronary angioplasty implant and graft (2) S/P total knee arthroplasty: Status: Acute Code(s): Z96.659 - Presence of unspecified artificial knee joint Plan: Patient is postop day 1 status post left total knee arthroplasty with Dr. Rios 04/21/2024. 1. Will continue PT today. Weightbearing as tolerated 2. plan for discharge this afternoon following PT 3. Patient will follow up for post op appointment as previously scheduled in 2 weeks 4. Patient has outpatient PT appointment as previously scheduled 5. WBC 14.2 acute reactive leukocytosis: secondary to pre operative decadron. no acute systemic signs of infection. will monitor, and likely self resolve. 6. H/H .04/15.4: post operavtive anemia secondary to acute blood loss intraoperatively. Patient is asymptomatic at this time. No intraoperative complications. will continue to monitor. no acute interventions. 7. DVT prophylaxis : Resume Eliquis and Plavix today. Discontinue aspirin. This is what she was on before surgery. 8. Pain control: patient instructed to take tylenol 500mg 2 tablets TID. and oxycodone 1-2 tablets every 4-6 hours only as needed for pain control. 9. Patient also given a prescription of Keflex 500 mg 4 times a day for 1 week for prophylaxis. 10. ok to remove post op dressing. post op day 7 Medications at Discharge Home Medications bimatoprost 0.03 % drops with applicator, eyelash base (Latisse) 1 drp QHS 01/08/17 fluoxetine 20 mg capsule (Prozac) 20 mg PO DAILY 01/08/17 multivitamin (Multiple Vitamins tablet) 1 ea PO DAILY 01/08/17 potassium citrate 10 mEq (1,080 mg) tablet,extended release 40 meq PO DAILY 01/08/17 rosuvastatin 10 mg tablet 40 mg PO DAILY 01/08/17 apixaban 5 mg tablet (Eliquis) 5 mg PO BID 03/23/24 bumetanide 1 mg tablet 1 mg PO DAILY 03/23/24 clopidogrel 75 mg tablet 75 mg PO DAILY 03/23/24 lactobacillus combination no.4 3 billion cell capsule (Probiotic) 3,000 mmu cells PO DAILY 03/23/24 losartan 25 mg tablet 25 mg PO DAILY 03/23/24 metoprolol succinate 25 mg tablet,extended release 24 hr 25 mg PO BID 03/23/24 acetaminophen 500 mg tablet 1,000 mg (2 x 500 mg) PO Q8 #180 tabs 04/22/24 cephalexin 500 mg capsule 500 mg PO Q6H 7 days #28 caps 04/22/24 oxycodone 5 mg tablet 5 - 10 mg (1 - 2 x 5 mg) PO .q4-6hrs prn PRN Pain Score 4- 10 7 days #42 tabs 04/22/24 sennosides 8.6 mg-docusate sodium 50 mg tablet (Stimulant Laxative Plus) 2 tab PO BID #14 tabs 04/22/24 Hospital Course Operations total knee replacement Procedures None Summary of Care Provided Hospital Course: Patient is s/p left sided total knee arthroplasty with Dr. Rios 04/21/2024. Patient resting comfortably in bed. Rates pain 3/ 10 at rest. With movement 6/10. States taking Tylenol and oxycodone as needed and ice help to relieve pain. Patient has been up with therapy. Walking with the assit of a walker. Afebrile, no chest pain, shortness of breath, negative calf pain/ erythema, and no other signs of DVT. Physical Exam Narrative Patient resting comfortably in bed No signs of acute distress Satting well on room air Limb is warm to touch, Sensation intact throughout entire lower extremity, including saphenous, sural, superficial and deep peroneal, and tibial distribution. DP/PT pulses bounding. Dorsiflexion plantarflexion strength 5/5 Dressing small amount of drainage at the distal pin sites. the tegaderm dressing is still intact. there is small amount of drainage at distal portion of mepilex. Calf nontender to palpation, no erythema, no edema. Negative Homans Weight / BMI Weight Weight: 101 kg Body Mass Index (BMI) 39.4 ABG / Lab / Microbiology Data 04/22/24 05:47 04/22/24 05:47 Laboratory: Laboratory Results - last 24 hr 04/22/24 05:47: WBC 14.2 H, RBC 3.52 L, Hgb 10.1 L, Hct 31.4 L, MCV 89.2, MCH 28.7, MCHC 32.2, RDW Std Deviation 44.0 H, RDW Coeff of Earl 13.5, Plt Count 191, MPV 10.3, Sodium 138, Potassium 4.6, Chloride 107, Carbon Dioxide 25.0, Anion Gap 6, BUN 16, Creatinine 0.62, Estim Creat Clear Calc 74.21, Est GFR (MDRD) Af Amer 122, Est GFR (MDRD) Non-Af 101, BUN/Creatinine Ratio 25.8 H, Glucose 139 H, Calcium 8.2 L Microbiology: Microbiology 03/24/24 13:49 Swab (Method) Nasal Screen MRSA/MSSA - Final D/C Instructions Discharge Diet: No restrictions Discharge Activity: Return to Normal Activity May shower in (days): 1 Ice area for (Minutes): 20 Weight Bearing Status: Weight bearing as tolerated Keep extremity elevated above heart level: Operative Extremity and Left Leg Call your doctor if your incision/area has: Continuous Slow Oozing, Sudden Increased Bleeding, Increased Pain/ Swelling, Increased Redness, Foul Smelling Discharge and Swelling at the incision site Call your doctor if you observe: Fever of 101 or Higher, Numbness or Tingling, Inability to urinate, Inability to have a bowel movement, Shortness of breath, Dizziness, Chest pain, Increased palpitations (irregular heartbeat) and Calf discomfort Remove Dressing in: 1 week Cleanse incision/area with: Soap & Water and Keep Dressing Clean & Dry DC O2, CPAP, BIPAP Needs Home O2 Discharge instructions: No DC home with Oxygen: No When: In 2 weeks as previously scheduled Meaningful Use Info Meaningful Use Meaningful Use Diagnoses (Choose all that apply): None applicable Ischemic Stroke Statin Dosing Therapy Reference: STATIN DOSE THERAPY REFERENCE: * Patients > 75 years receive moderate or high dose statin therapy. * Patients 75 years or YOUNGER should receive HIGH intensity statin dose unless contraindicated. You will be required to document reason for non-treatment if statin daily dose does not meet guidelines. HIGH DOSE STATIN THERAPY DAILY Atorvastatin > than or = to 40 mg Rosuvastatin > than or = to 20 mg Amlodipine + Atorvastatin > than or = to 2.5/40 mg Ezetimibe + Simvastatin 10/80 mg Simvastatin 80mg Discharge Plan Admission Admit Date/Time: 04/21/24 13:27 Attending Provider: Zak Rios Primary Care Provider: Iva Fleming Consulting Providers: Ayla Vickers; Alex Emery Discharge Orders/Prescriptions Prescriptions: New acetaminophen 500 mg Tablet 1,000 mg PO Q8 Qty: 180 0RF oxycodone 5 mg Tablet 5 - 10 mg PO .q4-6hrs prn PRN (Reason: Pain Score 4-10) 7 Days Qty: 42 0RF sennosides-docusate sodium [Stimulant Laxative Plus] 8.6-50 mg Tablet 2 tab PO BID Qty: 14 0RF cephalexin 500 mg capsule 500 mg PO Q6H 7 Days Qty: 28 0RF Continued multivitamin [Multiple Vitamins] 1 EACH tablet 1 ea PO DAILY potassium citrate 10 MEQ tablet extended release 40 meq PO DAILY fluoxetine [Prozac] 20 MG capsule 20 mg PO DAILY rosuvastatin 10 MG tablet 40 mg PO DAILY bimatoprost [Latisse] 1 DROP bottle 1 drp Left Eye QHS clopidogrel 75 mg tablet 75 mg PO DAILY losartan 25 mg tablet 25 mg PO DAILY bumetanide 1 mg tablet 1 mg PO DAILY metoprolol succinate 25 mg tablet extended release 24 hr 25 mg PO BID Eliquis 5 mg tablet 5 mg PO BID Probiotic 3 billion cell capsule 3,000 mmu cells PO DAILY Rx Instructions: administer with a meal Discontinued aspirin [Adult Aspirin Regimen] 81 mg tablet,delayed release (DR/EC) 81 mg PO DAILY Other Ambulatory Orders: 12 Lead EKG (Routine) Location: None Selected Ordered By: Dr. Zak Rios Referrals / Follow Up: Ronald Sepulveda DO [Med Staff - Fitness Director] - Disposition Disposition (needs filled in before D/C Order can be placed): Home, Self Care
== END 2024-04-22 13:34 | disposition home or self-care (01) ==
LOC: SDC 14:25 → MS3 14:25
PROVIDERS: Anesthesiology; Admitting Provider Student in an Organized Health Care Education/Training Program; PCP Family Medicine; Referring Provider Student in an Organized Health Care Education/Training Program; Visit Provider Student in an Organized Health Care Education/Training Program
PROC: 0SRD0JZ Replacement of Left Knee Joint with Synthetic Substitute, Open Approach (ICD-10-PCS; CPT 27447; principal; 2024-04-21 10:30)
DX: M17.12 Unilateral primary osteoarthritis, left knee (principal); I11.0 Hypertensive heart disease with heart failure; I50.9 Heart failure, unspecified; I48.0 Paroxysmal atrial fibrillation; Z79.02 Long term (current) use of antithrombotics/antiplatelets; Z79.01 Long term (current) use of anticoagulants; M21.062 Valgus deformity, not elsewhere classified, left knee; Z95.5 Presence of coronary angioplasty implant and graft; K21.9 Gastro-esophageal reflux disease without esophagitis; I49.1 Atrial premature depolarization; Z95.2 Presence of prosthetic heart valve; M79.7 Fibromyalgia; Z87.891 Personal history of nicotine dependence; Z79.899 Other long term (current) drug therapy; F32.A Depression, unspecified; F41.9 Anxiety disorder, unspecified
CPT/HCPCS: 27447; S2900; 01402; 36415; 80048; 82040; 82962; 83735; 85025; 85027; 87081; 88305; 88311; 93005; 94668; 96361; 96365; 96366; 97110; 97116; 97162; 97166; 97530; 99221; C1776; G0378; J2405

== ENCOUNTER 2024-11-22 13:00 | Outpatient (RCR) | payer MEDICARE, BC, SELFPAY ==
--- NOTE | 2024-10-10 17:27 | HP.OTEVAL ---
Patient's Visit Information Visit Information Visit Information: VARINDER PEREZ is a 68 year old F, referred to Occupational Therapy by RENNY Garcia, with a diagnosis of lymphedema. Date of Evaluation: 10/10/24 Occupational Therapist: NUHA Rai/Nissa, CHT Subjective Subjective: This 68 year old female was seen for OT eval with dx of Lymphedema/lipedema pt states she has had larger legs for years. Pt states she feels her legs have always been larger- states they swelling during the day and do go down a little at night while she is sleeping. Pt states the weather does make a difference and with increase heat legs are more swollen. pt states she had a abdominal stent in her abdomen was to improve the circulation improve in her legs ( Dr. Lee was about a year ago) pt states 2023 she had open heart sx for aortic valve replacement. pt states she feels her weight has not changed. Pt states she does have compression socks - pt states she tries to wear them but they slide down. pt states her charge master coordinator sent her as her legs continue to swell. pt states her mother and her dtr have larger legs as well. Pain bilateral LE: Current Pain Intensity: 6 Pain Intensity Range: 5 and 6 Lymphedema (Circumferential Measure) Mid-foot: right 22cm left 22cm Ankle: right 30cm left 28cm Lower calf: right 39cm left 42cm Largest calf: right 52cm left 54cm Below knee: right 52cm left 54cm Above knee: [id number] left 63cm Goals Goal: Patient will demonstrate a 20% reduction in edema by discharge: Yes Goal: Patient will demonstrate adequate knowledge of self-bandaging by the end of the first week.: Yes Goal: Patient will demonstrate adequate knowledge of self-massage by the end of the second week.: Yes Goal: Patient will demonstrate adequate knowledge of skin care and precautions by the end of the first week.: Yes Goal: Patient will demonstrate adequate knowledge of therapeutic exercises by discharge.: Yes Goal: Patient will select an appropriate compression garment and demonstrate adequate knowledge of correct donning technique, care and wearing schedule by discharge.: Yes Goal: Patient will voice understanding of need to replace compression garment every four to six months by discharge.: Yes Rehabilitation General Assessment: pt demo with lymphedema/lipedema causing swelling in bilateral LE. pt demo need for skilled OT services 4-6 visits to ed. pt on life long mtg of her dx. Today therapist ed. pt on use of compression garments 20-30 mmHg, as well as exercises that help support circulation. pt demo understanding and agree to POC. Pt would benefit from home compression pump ( thigh high ) to assist pt in life long mtg. pt is receptive. Anticipated Interventions Anticipated Interventions: Education re assistive Equipment, Education re Diagnosis, Education re Life-long lymphedema Management, Education re Self-Bandaging Techniques, Education re Skin Care and Precautions, Education re Self Massage Techniques, Education re Correct Donning Tech,Care&Wearing Sched Comp Garments, Caregiver Training and Home Program Visit Plan TEXT: Thank you for the opportunity to evaluate your patient. For Medicare and Medicare HMO plans, please review the plan of care and approve it. It will need to be FAXED BACK to us at [phone] for Medicare purposes. Please let me know if there are questions or concerns regarding this plan of care. Physician Signature: Date:
== END 2024-11-22 19:00 | disposition home or self-care (01) ==
LOC: OT 13:00
PROVIDERS: PCP Family Medicine; Referring Provider Physician Assistant; Visit Provider Physician Assistant
DX: I89.0 Lymphedema, not elsewhere classified (principal); R60.9 Edema, unspecified
CPT/HCPCS: 97110; 97166; 97530

== ENCOUNTER → 2024-12-29 | Outpatient (CLI) | payer MEDICARE, BC, SELFPAY ==
--- NOTE | 2024-12-29 09:37 | MRI_ITS ---
PROCEDURE: LOWER EXT JOINT ONLY (ROUTINE) 12/29/2024 REASON FOR EXAM: PAIN IN RIGHT ANKLE AND JOINTS OF RIGHT FOOT TECHNIQUE: Procedure Code: MRILEJ Modality: MR Procedure: LOWER EXT JOINT ONLY (ROUTINE) T1, T2, stir, multiplanar and multisequence images were obtained of the right ankle without IV contrast administration. COMPARISON: None FINDINGS: Bones: There is normal articulation of the ankle joint. No acute fractures or dislocations. Normal marrow signal. The contours of the talar dome are normal. Achilles tendon: There is increased T2 signal and mild thickening of the distal Achilles without tear, with a edema in the adjacent soft tissues, mild tendinopathy. Plantar aponeurosis is intact. The lateral, medial and central cords of the plantar fascia are intact. Tendons: The peroneal tendons demonstrate increased T2 signal and attenuation with adjacent edema and increased fluid in the distal tendon sheaths, [id number] tenosynovitis. The flexor digitorum longus, tibialis posterior and flexor hallucis longus tendons are intact. The extensor tendons are intact. The extensor retinaculum is intact and normal in signal. Sinus Tarsi: The subtalar joint is intact. Signal in the sinus tarsi is normal. Transverse and cervical ligaments are intact. Ligaments: Lateral syndesmotic ankle ligaments including the anterior and posterior tibiofibular ligaments are intact. The anterior and posterior talofibular ligaments are intact. The medial ankle ligaments including the deltoid and spring ligaments are intact. Effusion: There is no joint effusion. MRI/Lower Ext Joint Only (Routine) IMPRESSION: The peroneal tendons demonstrate increased T2 signal and attenuation with adjac ent edema and increased fluid in the distal tendon sheaths, [id number] tenosynovitis. There is increased T2 signal and mild thickening of the distal Achilles without tear, with a edema in the adjacent soft tissues, mild tendinopathy. Reading Location: [facility]
== END | disposition home or self-care (01) ==
LOC: MRI 09:31
PROVIDERS: PCP Family Medicine; Referring Provider Student in an Organized Health Care Education/Training Program; Visit Provider Student in an Organized Health Care Education/Training Program
DX: M25.571 Pain in right ankle and joints of right foot (principal)
CPT/HCPCS: 73721